=== PATIENT | male | born 1950 | race Caucasian/White ===

== ENCOUNTER → 2019-03-20 | Day surgery (SDC) | payer MEDICARE ==
[2019-03-19 13:15] LABS: BASOPHILS # (AUTO) 0.1 (0.0-0.1); BASOPHILS % 0.7 % (0.0-1.0); EOSINOPHILS # (AUTO) 0.4 (0.0-0.4); EOSINOPHILS % 3.8 % (0.0-6.0); HEMATOCRIT 40.4 % (38.2-49.6); HEMOGLOBIN 12.8 g/dL (14.0-18.0); LYMPHOCYTES # (AUTO) 2.9 (1.0-3.2); LYMPHOCYTES % 29.4 % (18.0-39.1); MEAN CORPUSCULAR HEMOGLOBIN 26.7 pg (28-32); MEAN CORPUSCULAR HGB CONC 31.7 g/dL (31-35); MEAN CORPUSCULAR VOLUME 84.2 fL (81-99); MONOCYTES # (AUTO) 0.7 (0.2-0.8); MONOCYTES % 6.9 % (4.4-11.3); NEUTROPHILS # (AUTO) 5.8 (2.1-6.9); NEUTROPHILS % 58.9 % (38.7-80.0); PLATELET COUNT 336 x10e3/uL (140-360); RED CELL DISTRIBUTION WIDTH 14.4 % (11.7-14.4)
[2019-03-19 13:21] LABS: INR 0.91; PROTHROMBIN TIME 12.7 seconds (11.9-14.5)
[2019-03-19 13:31] LABS: ALBUMIN 3.8 g/dL (3.5-5.0); ANION GAP 13.6 mmol/L (8-16); CALCIUM 10.2 mg/dL (8.4-10.2); CREATININE, SERUM 1.21 mg/dL (0.72-1.25); POTASSIUM 3.6 mmol/L (3.5-5.1)
[2019-03-20] VITALS (9 sets, daily range): BP systolic 152–188; BP diastolic 73–88
[~2019-03-20] VITALS: Ht 177.8 cm; Wt 90.7 kg
[~2019-03-20] MED LIST: ALBUTEROL SULFAT4 MG IH; AMLODIPINE BESY10 MG PO; CLOPIDOGREL75 MG PO; COREG CR40 MG PO; FENTANYL CITRATE/PF 100MCG/2 ML INJ ONE; HEPARIN SOD/SOD CHLORIDE 2,000 ML ONE; HYDROCODONE/APAP 5MG-325MG TAB ONE; IOPAMIDOL 300MG/ML 100 ML INFUS..BTL IV ONE; LIDOCAINE HCL 2% LOCAL 20 ML VIAL ONE; LIPITOR20 MG PO; LOSARTAN-HCTZ1 EAC1 PO; MIDAZOLAM HCL 2 MG/2 ML VIAL ONE; SODIUM CHLORIDE 0.9% 1000ML 1,000 ML ONE; ULTRAM50 MG PO; WELLBUTRIN SR150 MG PO; trelegy IH
--- OUTSIDE RECORDS SUMMARY | 2019-03-20 06:24 | XMS REPORT | Clinical Summary ---
Author Author [facility] Organization [facility] Address Unknown Phone Unavailable Care Team Providers Care Vocational Rehabilitation Specialist Name Role Phone Rachele Romero MD PCP Allergies No Known Allergies Medications End Date Status Medication Sig Dispensed Refills Start Date Active [id number] 0 iazid 10-320-25 mg tablet 8 Active carvedilol CR (COREG CR) 0 40 MG 24 hr capsule 8 Active clopidogrel (PLAVIX) 75 0 mg tablet 8 Active modafinil (PROVIGIL) 200 0 MG tablet 8 Active traMADol (ULTRAM) 50 mg 0 tablet 8 Active ANORO ELLIPTA 62.5-25 0 mcg/actuation blister 8 with device Active Problems Problem Noted Date Sensorineural hearing loss, bilateral 05/20/2018 Encounters Care Team Description Date Type Specialty Jeremy Nuno MD Sensorineural hearing loss, bilateral 05/20/2018 Office Visit Otolaryngology Jeremy Nuno MD Bilateral impacted cerumen (Primary Dx) 05/17/2018 Office Visit Otolaryngology after 03/19/2018 Social History Date Tobacco Use Types Packs/Day Years Used Current Some Day Smoker Cigarettes Smokeless Tobacco: Never Used Alcohol Use Drinks/Week oz/Week Comments No Sex Assigned at Date Recorded Not on file Industry Job Start Date Occupation Not on file Not on file Not on file Travel End Travel History Travel Start No recent travel history available. Last Filed Vital Signs Time Taken Vital Sign Reading - Blood Pressure - - Pulse - - Temperature - - Respiratory Rate - - Oxygen Saturation - - Inhaled Oxygen - Concentration 05/17/2018 11:08 AM CDT Weight 94.8 kg (209 lb) 05/17/2018 11:08 AM CDT Height 177.8 cm (5' 10") 05/17/2018 11:08 AM CDT Body Mass Index 29.99 Plan of Treatment Health Maintenance Due Date Last Done Comments COLON CANCER SCREENING 2000 SHINGLES VACCINES (#1) 2000 65+ PNEUMOCOCCAL VACCINE 2015 (1 of 2 - PCV13) PNEUMOCOCCAL 2015 POLYSACCHARIDE VACCINE AGE 65 AND OVER INFLUENZA VACCINE 05/29/2019 Procedures Comments Procedure Name Priority Date/Time Associated Diagnosis COMPREHENSIVE HEARING Routine 05/20/2018 Bilateral impacted TEST 1:15 PM CDT cerumen after 03/19/2018 Results * Comprehensive hearing test (05/20/2018 1:15 PM CDT) Narrative Performed At after 03/19/2018 Insurance Type Payer Benefit Subscriber ID Effective Phone Address Plan / Dates Group HMO [employer] C[employer] xxxxxxxxx [id number] [facility] Advance Directives Patient has advance care planning documents on file. For more information, dominique atkinson contact: Pantera Kapoor [address] [place] [address]
--- OUTSIDE RECORDS SUMMARY | 2019-03-20 06:24 | XMS REPORT ---
Author Author [facility] Address Unknown Phone Unavailable Care Team Providers Care Sql Consultant Name Role Phone Unavailable Unavailable Payers Payer Name Policy Type Policy Number Effective Date Expiration Date Problems This patient has no known problems. Allergies, Adverse Reactions, Alerts Allergy Name Allergy Type Status Severity Reaction(s) Onset Date Inactive Date Treating Clinician Comments No Known Drug Intolerances DA Active U 2009-04-26 00:00:00 Not Converted 80. See Text. DA Active U 2009-04-26 00:00:00 No Known Contrast Allergies DA Active U 2009-01-04 00:00:00 No Known Drug Allergies DA Active U 2009-01-04 00:00:00 No Known Food Allergies DA Active U 2009-01-04 00:00:00 No Known Other Allergies DA Active U 2009-01-04 00:00:00 Medications This patient has no known medications.
--- NOTE | 2019-03-20 09:35 | NUR ---
0935 received pt to rm#9. Identiferx2 Carotid DR Bey no fix Rt vascade closure site w/o s/s oozing or hematoma.Handoff from Sly Braun. Resp shallow and regular. 98% RA Back to baseline orientation. Abdomen soft and nontender. Denies necessity to defecate or urinate. Left iv site w/o s/s infiltration. Family at bedside Post care instructions with copies to pt. Dr Bey spoke with family and pt regarding POC. NO gross issues pain,pallor,pressure or dysrhythmia. Denies c/o Cp or SOB. ds/rn
--- NOTE | 2019-03-20 10:30 | NUR ---
1030 Narc0 35/5 po for oain 8-10 low back pain holding still Family remains at bedside no gross issues pain pallor pressure or dysrhythmia. ds/rn
--- NOTE | 2019-03-20 11:30 | NUR ---
1130 denies back discomfort. Pain 0/10.Discharge completed with copies with pt of POC. RT groin site w/o s/s bleeding or hematoma at vascade site. Vs and Ekg stable Iv removed and Coban dressing in place. NO s/s infiltration. Dressed and voided qs tolerating po intake and back to baseline orientation. Aware of importance of f/o care. 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 Denies CO CP or SOB aware of importance to f/o wiht surgeon as recommended by Dr Bey for Carotid fix. ds/rn
--- NOTE | 2019-04-18 00:40 | Operative Report ---
DATE OF PROCEDURE: 03/20/2019 SURGEON: Weston Bey DO PROCEDURES PERFORMED: 1. Selective right subclavian angiography. 2. Bilateral selective carotid angiography. PREPROCEDURE DIAGNOSIS: Carotid bruit. POSTPROCEDURE DIAGNOSIS: Carotid bruit. ESTIMATED BLOOD LOSS: Less than 20 mL. SPECIMENS REMOVED: None. PROCEDURE IN DETAIL: After informed consent was obtained, the patient was brought to the cardiac catheterization laboratory in a fasting and nonsedated state. A 5-Irish sheath was placed in the right common femoral artery. Diagnostic imaging of the right subclavian, and bilateral carotid arteries were performed using a JR4 catheter. The patient tolerated the procedure well with no immediate complications, transferred back to his room in stable condition. PROCEDURE FINDINGS: 1. The left common carotid and the left external carotid arteries are patent. There is mild 40% to 50% stenosis of the left internal carotid artery. 2. The right brachiocephalic and proximal right common carotid are patent. The distal portion of the right common carotid artery at the bifurcation of the external and internal carotid arteries has a severe 80% stenosis involving the proximal portions of the internal and external carotid arteries. 3. The right subclavian artery has 50% stenosis. IMPRESSION: Severe right carotid artery stenosis. RECOMMENDATIONS: Carotid endarterectomy. DO SASHA Clarke/MODL /[id number]
== END | disposition home or self-care (01) ==
LOC: CATH LAB 06:21
PROVIDERS: ATTEND Internal Medicine Cardiovascular Disease
DX: I65.21 Occlusion and stenosis of right carotid artery (principal); I10 Essential (primary) hypertension; R07.2 Precordial pain; I73.9 Peripheral vascular disease, unspecified; E78.5 Hyperlipidemia, unspecified; J45.909 Unspecified asthma, uncomplicated; Z01.812 Encounter for preprocedural laboratory examination; Z79.02 Long term (current) use of antithrombotics/antiplatelets; Z82.49 Family history of ischemic heart disease and other diseases of the circulatory system
CPT/HCPCS: 36222; 36225; 36415; 80053; 85025; 85610; C1760; C1769 ×2; J2001; J2250; J7030; Q9967; J3010

== ENCOUNTER 2021-04-14 07:26 | Observation (INO) | payer MEDICARE ==
[2021-04-11 15:25] LABS: BASOPHILS # (AUTO) 0.1 (0.0-0.1); BASOPHILS % 0.7 % (0.0-1.0); EOSINOPHILS # (AUTO) 0.4 (0.0-0.4); EOSINOPHILS % 4.4 % (0.0-6.0); HEMATOCRIT 41.2 % (38.2-49.6); HEMOGLOBIN 12.7 g/dL (14.0-18.0); LYMPHOCYTES % 30.8 % (18.0-39.1); MEAN CORPUSCULAR HEMOGLOBIN 26.3 pg (28-32); MEAN CORPUSCULAR HGB CONC 30.8 g/dL (31-35); MEAN CORPUSCULAR VOLUME 85.5 fL (81-99); MONOCYTES # (AUTO) 0.7 (0.2-0.8); NEUTROPHILS # (AUTO) 5.6 (2.1-6.9); NEUTROPHILS % 56.7 % (38.7-80.0); PLATELET COUNT 386 x10e3/uL (140-360); RED BLOOD COUNT 4.82 x10e6/uL (4.3-5.7); RED CELL DISTRIBUTION WIDTH 13.3 % (11.7-14.4)
[2021-04-11 15:35] LABS: INR 0.86; PROTHROMBIN TIME 12.3 seconds (11.9-14.5)
[2021-04-11 15:44] LABS: ALANINE AMINOTRANSFERASE 22 IU/L (0-55); ALBUMIN 3.7 g/dL (3.5-5.0); ALKALINE PHOSPHATASE 115 IU/L (40-150); ANION GAP 10.6 mmol/L (8-16); BLOOD UREA NITROGEN 14 mg/dL (7-26); BUN/CREATININE RATIO 13 (6-25); CALCIUM 9.3 mg/dL (8.4-10.2); CARBON DIOXIDE 28 mmol/L (22-29); CHLORIDE 101 mmol/L (98-107); CREATININE, SERUM 1.08 mg/dL (0.72-1.25); EST GLOMERULAR FILTRATION RATE > 60 ML/MIN (60-); GLUCOSE 97 mg/dL (74-118); POTASSIUM 4.6 mmol/L (3.5-5.1); SODIUM 135 mmol/L (136-145)
[~2021-04-14] VITALS: Ht 175.3 cm; Wt 92.1 kg
[2021-04-14] VITALS (17 sets, daily range): BP systolic 100–138; BP diastolic 68–107
[~2021-04-14 07:26] MED LIST changes: -FENTANYL CITRATE/PF 100MCG/2 ML INJ ONE; -HEPARIN SOD/SOD CHLORIDE 2,000 ML ONE; -HYDROCODONE/APAP 5MG-325MG TAB ONE; -IOPAMIDOL 300MG/ML 100 ML INFUS..BTL IV ONE; -LIDOCAINE HCL 2% LOCAL 20 ML VIAL ONE; -MIDAZOLAM HCL 2 MG/2 ML VIAL ONE; -SODIUM CHLORIDE 0.9% 1000ML 1,000 ML ONE
[2021-04-14] MEDS ORDERED: ALPRAZOLAM 0.5 MG TAB ONE (07:51)
[2021-04-14] MEDS ORDERED: LIDOCAINE HCL 2% LOCAL 20 ML VIAL ONE (08:12)
[2021-04-14] MEDS ORDERED: MIDAZOLAM HCL 2 MG/2 ML VIAL ONE (08:12)
[2021-04-14] MEDS ORDERED: FENTANYL CITRATE/PF 100MCG/2 ML INJ ONE (08:12)
[2021-04-14] MEDS ORDERED: HEPARIN SOD/SOD CHLORIDE 2,000 ML ONE (08:13)
[2021-04-14] MEDS ORDERED: IOPAMIDOL 300MG/ML 100 ML INFUS..BTL IV ONE (08:13)
[2021-04-14] MEDS ORDERED: SODIUM CHLORIDE 0.9% 1000ML 1,000 ML ONE (08:13)
[2021-04-14] MEDS ORDERED: HYDROXYZIN10 MG/5 ML PO (09:14)
[2021-04-14] MEDS ORDERED: CLOTRIMAZOLE TOP (09:14)
[2021-04-14] MEDS ORDERED: [UNRECOGNIZED DRUG - OTHER] (09:14)
[2021-04-14] MEDS ORDERED: ASPIRIN CHEW81 MG PO (09:14)
[2021-04-14] MEDS ORDERED: ASPIRIN 81 MG CHEW TAB PO SCH (13:15)
[2021-04-14] MEDS: ENOXAPARIN SODIUM INJ 100 MG/ML SYR SC SCH ×2 (17:00→20:19)
[2021-04-14] MEDS ORDERED: ATORVASTATIN 40 MG TAB PO SCH (21:00)
[2021-04-14] MEDS ORDERED: TRAMADOL HCL 50 MG TAB PO PRN (21:00)
== END 2021-04-14 23:20 | disposition short-term general hospital (02) ==
LOC: CATH LAB 07:26 → CATH LAB V 10:42 → MED/SURG 12:18
PROVIDERS: ADMIT Internal Medicine Cardiovascular Disease; ATTEND Internal Medicine Cardiovascular Disease
DX: I65.21 Occlusion and stenosis of right carotid artery (principal); I25.10 Atherosclerotic heart disease of native coronary artery without angina pectoris; I73.9 Peripheral vascular disease, unspecified; I10 Essential (primary) hypertension; E78.5 Hyperlipidemia, unspecified
CPT/HCPCS: 36222; 36415; 80053; 85025; 85610; 93458; C1766; C1769; C1887; C1894; G0378; J1650; J2001; J2250; J3010; J7030; Q9967; 99152; 99153